=== PATIENT | female | born 1970 | race Caucasian/White ===

== ENCOUNTER → 2016-12-04 | Outpatient (CLI) | payer OTHER ==
[~2016-12-04] MED LIST: ADVIL200 MG PO; ALEVE220 MG PO; CLONIDINE0.1 MG PO; GABAPENTIN300 M1 PO; KLONOPIN0.5 MG PO; LEXAPRO20 MG PO; NEURONTIN300 MG/CAP PO; ORPHENADRINE C100 MG PO; TRAMADOL HYDRO100 MG PO; ULTRAM50 M1 PO; ULTRAM50 MG PO; VYTORIN; WELLBUTRIN SR150 M2 PO; XANAX 0.5MG0.5 MG PO; XANAX0.5 MG PO; ZOLOFT 100MG100 MG PO
== END ==
LOC: MAMMO 07:39
DX: R92.8 Other abnormal and inconclusive findings on diagnostic imaging of breast (principal)

== ENCOUNTER → 2017-05-16 | Outpatient (CLI) | payer OTHER ==
[2016-06-17 19:54] VITALS: BP 136/72
== END ==
LOC: RAD 15:07
DX: R05 Cough (principal)

== ENCOUNTER → 2017-08-29 | Outpatient (CLI) | payer OTHER ==
[2016-06-17 19:54] VITALS: BP 136/72
[2017-08-30 01:29] LABS: T3 TOTAL 90 ng/dL (87-178)
== END ==
LOC: LAB 15:56
PROVIDERS: Nurse Practitioner Family
DX: F45.8 Other somatoform disorders (principal)

== ENCOUNTER → 2018-01-15 | Outpatient (CLI) | payer OTHER ==
[2016-06-17 19:54] VITALS: BP 136/72
== END ==
LOC: MAMMO 11:30
DX: Z12.31 Encounter for screening mammogram for malignant neoplasm of breast (principal); R92.8 Other abnormal and inconclusive findings on diagnostic imaging of breast; N95.1 Menopausal and female climacteric states; F39 Unspecified mood [affective] disorder

== ENCOUNTER → 2018-01-21 | Outpatient (CLI) | payer OTHER ==
[2016-06-17 19:54] VITALS: BP 136/72
== END ==
LOC: RAD 07:11 → MAMMO 07:16 → RAD 07:16 → MAMMO 07:17
DX: R92.2 Inconclusive mammogram (principal); Z88.1 Allergy status to other antibiotic agents; Z88.5 Allergy status to narcotic agent

== ENCOUNTER → 2018-04-15 | Outpatient (CLI) | payer OTHER ==
[2016-06-17 19:54] VITALS: BP 136/72
== END ==
LOC: RAD 16:45
DX: M26.622 Arthralgia of left temporomandibular joint (principal); S00.83XA Contusion of other part of head, initial encounter

== ENCOUNTER → 2018-06-18 | Day surgery (SDC) | payer OTHER ==
[2016-06-17 19:54] VITALS: BP 136/72
== END ==
LOC: MSO 11:57
DX: R13.10 Dysphagia, unspecified (principal); K21.9 Gastro-esophageal reflux disease without esophagitis; F17.210 Nicotine dependence, cigarettes, uncomplicated; Z79.899 Other long term (current) drug therapy
CPT/HCPCS: 00731; A4649; C1726; J2704; J7120

== ENCOUNTER → 2018-08-29 | Outpatient (CLI) | payer OTHER ==
[2016-06-17 19:54] VITALS: BP 136/72
== END ==
LOC: MAMMO 11:33
DX: R92.8 Other abnormal and inconclusive findings on diagnostic imaging of breast (principal)

== ENCOUNTER → 2018-12-12 | Outpatient (CLI) | payer OTHER ==
[2016-06-17 19:54] VITALS: BP 136/72
== END ==
LOC: LAB 10:34
DX: N39.0 Urinary tract infection, site not specified (principal); B99.9 Unspecified infectious disease; R30.0 Dysuria; M54.9 Dorsalgia, unspecified

== ENCOUNTER → 2019-02-25 | Outpatient (CLI) | payer OTHER ==
[2016-06-17 19:54] VITALS: BP 136/72
== END ==
LOC: MAMMO 10:42
DX: Z12.31 Encounter for screening mammogram for malignant neoplasm of breast (principal)

== ENCOUNTER → 2019-03-20 | Outpatient (CLI) | payer OTHER ==
[2016-06-17 19:54] VITALS: BP 136/72
== END ==
LOC: RAD 10:45
DX: M79.89 Other specified soft tissue disorders (principal)

== ENCOUNTER → 2019-03-20 | Outpatient (REF) | payer OTHER ==
[2016-06-17 19:54] VITALS: BP 136/72
== END ==
LOC: RAD 10:33 → LAB 10:33 → EDSTATUS 10:39
DX: M79.642 Pain in left hand (principal); M79.89 Other specified soft tissue disorders

== ENCOUNTER → 2019-05-12 | Outpatient (CLI) | payer OTHER ==
[2016-06-17 19:54] VITALS: BP 136/72
== END ==
LOC: RAD 13:35
DX: R14.0 Abdominal distension (gaseous) (principal); R10.9 Unspecified abdominal pain

== ENCOUNTER → 2020-02-17 | Outpatient (CLI) | payer OTHER ==
[2016-06-17 19:54] VITALS: BP 136/72
== END ==
LOC: LAB 15:15
DX: R10.9 Unspecified abdominal pain (principal); R05 Cough

== ENCOUNTER → 2020-03-30 | Outpatient (CLI) | payer OTHER ==
[2016-06-17 19:54] VITALS: BP 136/72
[2020-03-30 14:40] LABS: BASO # 0.1 (0.02-0.10); EOS # 0.2 (0.04-0.40); EOS % 2.2 % (1.0-5.0); HEMATOCRIT 48.2 % (37.0-47.0); HEMOGLOBIN 15.7 g/dL (12.5-16.0); LYMPH# 3.8 (1.50-4.00); MEAN CELL VOLUME 93 fl (78-100); MEAN CORPUSCULAR HEMOGLOBIN 30 pg (27-31); MEAN CORPUSCULAR HGB CONC 33 g/dL (33-37); MEAN PLATELET VOLUME 9.3 fl (7.4-10.4); MONO # 0.8 (0.20-0.80); NEU # 4.4 (1.40-6.50); PLATELET COUNT 339 K/mm3 (130-400); RED BLOOD COUNT 5.18 M/mm3 (4.10-5.30); RED CELL DISTRIBUTION WIDTH 13.4 % (11.5-14.5); WHITE BLOOD COUNT 9.3 K/mm3 (4.8-10.8)
[2020-03-30 14:53] LABS: ALBUMIN 4.4 g/dL (3.5-5.0); POTASSIUM 4.5 mmol/L (3.5-5.1)
[2020-03-30 14:54] LABS: CALCIUM 9.2 mg/dL (8.3-10.5)
[2020-03-30 14:56] LABS: TOTAL PROTEIN 7.6 g/dL (6.4-8.3)
[2020-03-30 14:58] LABS: TOTAL BILIRUBIN 0.2 mg/dL (0.2-1.2)
== END ==
LOC: LAB 14:22
PROVIDERS: Family Medicine
DX: Z00.00 Encounter for general adult medical examination without abnormal findings (principal); Z12.11 Encounter for screening for malignant neoplasm of colon; Z12.39 Encounter for other screening for malignant neoplasm of breast; J30.89 Other allergic rhinitis; H66.91 Otitis media, unspecified, right ear; K90.9 Intestinal malabsorption, unspecified; E55.9 Vitamin D deficiency, unspecified; E78.2 Mixed hyperlipidemia; R10.13 Epigastric pain; R10.11 Right upper quadrant pain

== ENCOUNTER → 2020-03-31 | Outpatient (CLI) | payer OTHER ==
[2016-06-17 19:54] VITALS: BP 136/72
== END ==
LOC: MAMMO 08:24
DX: Z12.31 Encounter for screening mammogram for malignant neoplasm of breast (principal)

== ENCOUNTER → 2020-04-15 | Outpatient (CLI) | payer OTHER ==
[2016-06-17 19:54] VITALS: BP 136/72
== END ==
LOC: LAB 08:39
DX: Z01.818 Encounter for other preprocedural examination (principal); Z20.828 Contact with and (suspected) exposure to other viral communicable diseases

== ENCOUNTER → 2020-04-19 | Day surgery (SDC) | payer OTHER ==
[2016-06-17 19:54] VITALS: BP 136/72
== END ==
LOC: MSO 07:58
DX: Z12.11 Encounter for screening for malignant neoplasm of colon (principal); D12.0 Benign neoplasm of cecum; K57.90 Diverticulosis of intestine, part unspecified, without perforation or abscess without bleeding; K63.89 Other specified diseases of intestine; K64.4 Residual hemorrhoidal skin tags; K21.9 Gastro-esophageal reflux disease without esophagitis; F41.9 Anxiety disorder, unspecified; F32.9 Major depressive disorder, single episode, unspecified; F17.210 Nicotine dependence, cigarettes, uncomplicated; Z80.3 Family history of malignant neoplasm of breast; Z83.3 Family history of diabetes mellitus; Z88.1 Allergy status to other antibiotic agents; Z88.5 Allergy status to narcotic agent; Z79.899 Other long term (current) drug therapy
CPT/HCPCS: 00811; J2704; J7120

== ENCOUNTER → 2020-05-25 | Outpatient (CLI) | payer OTHER ==
[2016-06-17 19:54] VITALS: BP 136/72
== END ==
LOC: RAD 11:43
DX: R10.9 Unspecified abdominal pain (principal); R11.0 Nausea

== ENCOUNTER → 2020-05-26 | Outpatient (CLI) | payer OTHER ==
[2016-06-17 19:54] VITALS: BP 136/72
[~2020-05-26] MED LIST changes: +24 HOUR NASAL16.9 ML NS; +ANASPAZ0.125 M1 PO; +CETIRIZINE HCL10 MG PO; +FAMOTIDINE20 MG PO; +GABAPENTIN TAB600 MG PO; +NORCO 325 MG-51 TA1 PO; +OMEPRAZOLE40 MG PO; +PHENERGAN 25 TA25 MG PO; +PROAIR HFA0.09 MG/AC IH; +WELLBUTRIN XL300 M1 PO; +ZOFRAN ODT4 MG PO
== END ==
LOC: RAD 07:18
DX: R10.9 Unspecified abdominal pain (principal); R11.0 Nausea; Z90.49 Acquired absence of other specified parts of digestive tract

== ENCOUNTER → 2020-06-30 | Outpatient (CLI) | payer OTHER ==
[2020-05-28 12:25] VITALS: BP 135/86
== END ==
LOC: LAB 14:12
DX: N39.0 Urinary tract infection, site not specified (principal)

== ENCOUNTER → 2020-07-16 | Outpatient (CLI) | payer OTHER ==
[2020-05-28 12:25] VITALS: BP 135/86
== END ==
LOC: RAD 15:46
DX: S20.211A Contusion of right front wall of thorax, initial encounter (principal); W19.XXXA Unspecified fall, initial encounter

== ENCOUNTER → 2020-08-16 | Outpatient (CLI) | payer OTHER ==
[2020-05-28 12:25] VITALS: BP 135/86
== END ==
LOC: LAB 13:50
DX: J02.9 Acute pharyngitis, unspecified (principal); M79.10 Myalgia, unspecified site; J34.89 Other specified disorders of nose and nasal sinuses; R09.89 Other specified symptoms and signs involving the circulatory and respiratory systems; Z20.828 Contact with and (suspected) exposure to other viral communicable diseases

== ENCOUNTER → 2020-08-25 | Outpatient (CLI) | payer OTHER ==
[2020-05-28 12:25] VITALS: BP 135/86
== END ==
LOC: RAD 09:04
DX: J18.9 Pneumonia, unspecified organism (principal); J30.89 Other allergic rhinitis; Z72.0 Tobacco use

== ENCOUNTER 2020-08-31 10:44 | Inpatient (IN) | payer OTHER ==
[~2020-08-31] VITALS: Ht 154.9 cm; Wt 70.6 kg
[~2020-08-31 10:44] MED LIST changes: -WELLBUTRIN SR150 M2 PO
[2020-08-31] MEDS ORDERED: MUCINEX DM 30 M1 TE1 PO (11:02)
[2020-08-31] MEDS ORDERED: PREDNISONE20 M1 PO (11:03)
[2020-08-31] MEDS ORDERED: LEVOFLOXACIN750 MG PO (11:07)
[2020-08-31] MEDS ORDERED: ALBUTEROL SULFAT3 M3 (11:08)
[2020-08-31 11:37] LABS: EOS # 0.1 (0.04-0.40); EOS % 0.3 % (1.0-5.0); HEMATOCRIT 43.7 % (37.0-47.0); HEMOGLOBIN 13.8 g/dL (12.5-16.0); MEAN CELL VOLUME 96 fl (78-100); MEAN CORPUSCULAR HEMOGLOBIN 30 pg (27-31); MEAN CORPUSCULAR HGB CONC 32 g/dL (33-37); MEAN PLATELET VOLUME 8.7 fl (7.4-10.4); PLATELET COUNT 438 K/mm3 (130-400); RED BLOOD COUNT 4.54 M/mm3 (4.10-5.30); RED CELL DISTRIBUTION WIDTH 14.7 % (11.5-14.5); WHITE BLOOD COUNT 19.8 K/mm3 (4.8-10.8)
[2020-08-31 11:51] LABS: LYMPH# 5.8 (1.50-4.00); MONO # 1.6 (0.20-0.80); NEU # 12.2 (1.40-6.50)
[2020-08-31 11:52] LABS: POTASSIUM 4.3 mmol/L (3.5-5.1); SODIUM 139 mmol/L (136-145)
[2020-08-31 11:53] LABS: CALCIUM 9.3 mg/dL (8.3-10.5)
[2020-08-31 11:54] LABS: GLUCOSE 83 mg/dL (65-105); TOTAL PROTEIN 6.7 g/dL (6.4-8.3)
[2020-08-31 11:55] LABS: CARBON DIOXIDE 28 mmol/L (22-29)
[2020-08-31 12:00] LABS: AST-SGOT 19 U/L (5-34)
[2020-08-31 12:01] LABS: ALT/SGPT 46 U/L (0-55)
[2020-08-31 12:17] LABS: TOTAL BILIRUBIN 0.3 mg/dL (0.2-1.2)
[2020-08-31 12:38] LABS: TROPONIN-I < 0.03 ng/mL (<0.030)
[2020-08-31 12:41] LABS: ERYTHROCYTE SEDIMENTATION RATE 13 mm/hr (0-20)
[2020-08-31 12:57] LABS: PH-URINE 7.5 (5.0 - 8.0); URINE APPEARANCE CLEAR; URINE BILIRUBIN NEGATIVE (NEGATIVE); URINE BLOOD NEGATIVE (NEGATIVE); URINE COLOR YELLOW; URINE GLUCOSE NEGATIVE (NEGATIVE); URINE KETONE NEGATIVE (NEGATIVE); URINE LEUKOCYTE ESTERASE NEGATIVE (NEGATIVE); URINE NITRATE NEGATIVE (NEGATIVE); URINE PROTEIN(semi-quant) NEGATIVE (NEGATIVE); URINE UROBILINOGEN NORMAL (NORMAL); URINE WBC 0-1 /hpf (0-3)
[2020-08-31 13:08] LABS: D-DIMER 0.29 mg/L FEU (0.15-0.50)
[2020-08-31 15:25] VITALS: BP 136/82
[2020-08-31 18:24] VITALS: BP 130/71
[2020-08-31 21:25] VITALS: BP 115/65
[2020-09-01 02:01] VITALS: BP 131/78
[2020-09-01 05:56] LABS: HEMATOCRIT 43.6 % (37.0-47.0); HEMOGLOBIN 13.7 g/dL (12.5-16.0); MEAN CELL VOLUME 98 fl (78-100); MEAN CORPUSCULAR HEMOGLOBIN 31 pg (27-31); MEAN CORPUSCULAR HGB CONC 31 g/dL (33-37); MEAN PLATELET VOLUME 8.9 fl (7.4-10.4); PLATELET COUNT 403 K/mm3 (130-400); RED BLOOD COUNT 4.47 M/mm3 (4.10-5.30); RED CELL DISTRIBUTION WIDTH 14.3 % (11.5-14.5); WHITE BLOOD COUNT 15.2 K/mm3 (4.8-10.8)
[2020-09-01 06:02] VITALS: BP 146/83
[2020-09-01 06:16] LABS: POTASSIUM 4.1 mmol/L (3.5-5.1)
[2020-09-01 06:17] LABS: CALCIUM 8.4 mg/dL (8.3-10.5)
[2020-09-01 06:38] LABS: LYMPHOCYTE 2 % (20-51); MONOCYTE 1 % (3-10); NEUTROPHILS 97 % (42-75)
[2020-09-01 09:50] VITALS: BP 136/84
[2020-09-01 13:36] VITALS: BP 153/88
[2020-09-01] MEDS ORDERED: IPRATROPIUM BROM3 M1 IH (14:55)
[2020-09-01] MEDS ORDERED: DOCUSATE SOD100 MG PO (14:57)
[2020-09-01] MEDS ORDERED: VIBRAMYCIN HYC100 MG PO (15:00)
[2020-09-01] MEDS ORDERED: PREDNISONE20 M1 PO (15:00)
[2020-09-01] MEDS ORDERED: PERCOCET 325 MG1 TA2 PO (15:09)
== END 2020-09-01 15:45 | disposition home or self-care (01) | DRG 190 ==
LOC: ED 10:44 → MED/SURG 14:31
PROVIDERS: ADMIT Nurse Practitioner Family
DX: J43.9 Emphysema, unspecified (principal); J18.9 Pneumonia, unspecified organism; B37.0 Candidal stomatitis; M19.90 Unspecified osteoarthritis, unspecified site; R91.1 Solitary pulmonary nodule; S22.31XD Fracture of one rib, right side, subsequent encounter for fracture with routine healing; M54.5 Low back pain; F41.9 Anxiety disorder, unspecified; Z20.828 Contact with and (suspected) exposure to other viral communicable diseases; F17.210 Nicotine dependence, cigarettes, uncomplicated; W19.XXXD Unspecified fall, subsequent encounter; Z79.52 Long term (current) use of systemic steroids; Z96.651 Presence of right artificial knee joint; Z90.710 Acquired absence of both cervix and uterus; Z88.6 Allergy status to analgesic agent
CPT/HCPCS: J0295; J1650; J1885; J2060; J2930; J7030; Q9967

== ENCOUNTER → 2020-12-30 | Outpatient (CLI) | payer OTHER ==
[~2020-12-30] MED LIST changes: +ALBUTEROL SULFAT3 M3; +DOCUSATE SOD100 MG PO; +IPRATROPIUM BROM3 M1 IH; +LEVOFLOXACIN750 MG PO; +MUCINEX DM 30 M1 TE1 PO; +PERCOCET 325 MG1 TA2 PO; +PREDNISONE20 M1 PO; +VIBRAMYCIN HYC100 MG PO
== END ==
LOC: RAD 14:51
DX: S22.41XD Multiple fractures of ribs, right side, subsequent encounter for fracture with routine healing (principal)

== ENCOUNTER → 2021-02-10 | Outpatient (CLI) | payer OTHER ==
[~2021-02-10] MED LIST changes: +KLONOPIN 0.5MG0.5 MG PO; +LIDOCAINE1 EACH TP; +VOLTAREN 75 DR75 MG PO
[2021-02-10 16:30] LABS: HEMATOCRIT 49.8 % (37.0-47.0); HEMOGLOBIN 16.3 g/dL (12.5-16.0); MEAN CELL VOLUME 92 fl (78-100); MEAN CORPUSCULAR HEMOGLOBIN 30 pg (27-31); MEAN CORPUSCULAR HGB CONC 33 g/dL (33-37); MEAN PLATELET VOLUME 9.1 fl (7.4-10.4); PLATELET COUNT 327 K/mm3 (130-400); RED BLOOD COUNT 5.41 M/mm3 (4.10-5.30); RED CELL DISTRIBUTION WIDTH 13.5 % (11.5-14.5); WHITE BLOOD COUNT 15.9 K/mm3 (4.8-10.8)
[2021-02-10 16:42] LABS: ALBUMIN 4.2 g/dL (3.5-5.0)
[2021-02-10 16:43] LABS: CALCIUM 9.3 mg/dL (8.3-10.5)
[2021-02-10 16:45] LABS: TOTAL PROTEIN 7.2 g/dL (6.4-8.3)
[2021-02-10 16:46] LABS: TOTAL BILIRUBIN 0.2 mg/dL (0.2-1.2)
[2021-02-10 18:02] LABS: LYMPHOCYTE 13 % (20-51); NEUTROPHILS 82 % (42-75)
[2021-02-10 18:03] LABS: MONOCYTE 4 % (3-10)
== END ==
LOC: RAD 15:54
PROVIDERS: Physician Assistant
DX: R22.1 Localized swelling, mass and lump, neck (principal); R07.9 Chest pain, unspecified

== ENCOUNTER 2021-02-22 09:36 | Emergency (ER) | payer OTHER ==
[~2021-02-22 09:36] MED LIST changes: -KLONOPIN 0.5MG0.5 MG PO; -LIDOCAINE1 EACH TP; -VOLTAREN 75 DR75 MG PO
[2021-02-22 09:45] VITALS: BP 160/96
[2021-02-22] MEDS ORDERED: VOLTAREN 75 DR75 MG PO (09:50)
[2021-02-22] MEDS ORDERED: KLONOPIN 0.5MG0.5 MG PO (09:50)
[2021-02-22] MEDS ORDERED: LIDOCAINE1 EACH TP (09:50)
[2021-02-22 10:05] LABS: EOS # 0.1 (0.04-0.40); EOS % 0.7 % (1.0-5.0); HEMATOCRIT 48.9 % (37.0-47.0); HEMOGLOBIN 15.6 g/dL (12.5-16.0); LYMPH# 3.5 (1.50-4.00); MEAN CELL VOLUME 95 fl (78-100); MEAN CORPUSCULAR HEMOGLOBIN 30 pg (27-31); MEAN CORPUSCULAR HGB CONC 32 g/dL (33-37); MEAN PLATELET VOLUME 8.7 fl (7.4-10.4); MONO # 0.8 (0.20-0.80); NEU # 6.4 (1.40-6.50); PLATELET COUNT 406 K/mm3 (130-400); RED BLOOD COUNT 5.15 M/mm3 (4.10-5.30); RED CELL DISTRIBUTION WIDTH 14.7 % (11.5-14.5); WHITE BLOOD COUNT 10.8 K/mm3 (4.8-10.8)
[2021-02-22 10:27] LABS: POTASSIUM 4.2 mmol/L (3.5-5.1)
[2021-02-22 10:29] LABS: CALCIUM 8.8 mg/dL (8.3-10.5)
[2021-02-22 10:30] LABS: TOTAL PROTEIN 6.8 g/dL (6.4-8.3)
[2021-02-22 10:32] LABS: TOTAL BILIRUBIN 0.3 mg/dL (0.2-1.2)
== END 2021-02-22 12:32 | disposition home or self-care (01) ==
LOC: ED 09:36
PROVIDERS: Nurse Practitioner
DX: J06.9 Acute upper respiratory infection, unspecified (principal); G89.29 Other chronic pain; R07.89 Other chest pain; F41.9 Anxiety disorder, unspecified; E78.5 Hyperlipidemia, unspecified; F17.210 Nicotine dependence, cigarettes, uncomplicated; Z79.52 Long term (current) use of systemic steroids; Z79.891 Long term (current) use of opiate analgesic; Z88.6 Allergy status to analgesic agent; Z88.1 Allergy status to other antibiotic agents
CPT/HCPCS: Q9967

== ENCOUNTER → 2021-02-28 | Outpatient (CLI) | payer OTHER ==
[2021-02-22 09:45] VITALS: BP 160/96
[~2021-02-28] MED LIST changes: +KLONOPIN 0.5MG0.5 MG PO; +LIDOCAINE1 EACH TP; +VOLTAREN 75 DR75 MG PO
== END ==
LOC: RAD 13:45
DX: E04.1 Nontoxic single thyroid nodule (principal)

== ENCOUNTER → 2021-04-27 | Outpatient (CLI) | payer OTHER ==
[2021-04-27 12:21] LABS: BASO # 0.08 (0.02-0.10); EOS # 0.16 (0.04-0.40); EOS % 1.1 % (1.0-5.0); HEMATOCRIT 45.9 % (37.0-47.0); HEMOGLOBIN 15.4 g/dL (12.5-16.0); LYMPH# 3.77 (1.50-4.00); MEAN CELL VOLUME 93 fl (78-100); MEAN CORPUSCULAR HEMOGLOBIN 31 pg (27-31); MEAN CORPUSCULAR HGB CONC 34 g/dL (33-37); MEAN PLATELET VOLUME 8.7 fl (7.4-10.4); MONO # 0.69 (0.20-0.80); NEU # 9.41 (1.40-6.50); PLATELET COUNT 370 K/mm3 (130-400); RED BLOOD COUNT 4.96 M/mm3 (4.10-5.30); RED CELL DISTRIBUTION WIDTH 13.4 % (11.5-14.5); WHITE BLOOD COUNT 14.1 K/mm3 (4.8-10.8)
[2021-04-27 12:33] LABS: POTASSIUM 3.4 mmol/L (3.5-5.1)
[2021-04-27 12:34] LABS: ALBUMIN 3.9 g/dL (3.5-5.0)
[2021-04-27 12:36] LABS: TOTAL PROTEIN 6.7 g/dL (6.4-8.3)
[2021-04-27 12:38] LABS: TOTAL BILIRUBIN 0.4 mg/dL (0.2-1.2)
[2021-04-27 13:26] LABS: ERYTHROCYTE SEDIMENTATION RATE 1 mm/hr (0-30)
[2021-04-28 10:48] LABS: ANA SCREEN with REFLEX Negative (Negative)
== END ==
LOC: LAB 12:03
PROVIDERS: Physician Assistant
DX: E78.5 Hyperlipidemia, unspecified (principal); M25.50 Pain in unspecified joint

== ENCOUNTER → 2021-07-14 | Outpatient (CLI) | payer OTHER | LOC: LAB 15:09 | DX: R19.5 Other fecal abnormalities (principal) ==

== ENCOUNTER → 2021-07-20 | Outpatient (CLI) | payer OTHER ==
[2021-07-20 14:29] LABS: URINE APPEARANCE CLEAR; URINE BILIRUBIN NEGATIVE (NEGATIVE); URINE BLOOD NEGATIVE (NEGATIVE); URINE COLOR YELLOW; URINE GLUCOSE NEGATIVE (NEGATIVE); URINE KETONE NEGATIVE (NEGATIVE); URINE LEUKOCYTE ESTERASE NEGATIVE (NEGATIVE); URINE MUCUS PRESENT (NOT PRESENT); URINE NITRATE NEGATIVE (NEGATIVE); URINE PROTEIN(semi-quant) TRACE mg/dL (NEGATIVE); URINE UROBILINOGEN NORMAL (NORMAL)
[2021-07-20 14:33] LABS: BASO # 0.06 (0.02-0.10); EOS # 0.07 (0.04-0.40); EOS % 0.8 % (1.0-5.0); HEMATOCRIT 48.4 % (37.0-47.0); HEMOGLOBIN 15.7 g/dL (12.5-16.0); LYMPH# 3.19 (1.50-4.00); MEAN CELL VOLUME 93 fl (78-100); MEAN CORPUSCULAR HEMOGLOBIN 30 pg (27-31); MEAN CORPUSCULAR HGB CONC 32 g/dL (33-37); MEAN PLATELET VOLUME 9.7 fl (7.4-10.4); MONO # 0.65 (0.20-0.80); NEU # 4.55 (1.40-6.50); PLATELET COUNT 344 K/mm3 (130-400); RED BLOOD COUNT 5.22 M/mm3 (4.10-5.30); RED CELL DISTRIBUTION WIDTH 12.2 % (11.5-14.5); WHITE BLOOD COUNT 8.5 K/mm3 (4.8-10.8)
[2021-07-20 14:36] LABS: ALBUMIN 4.1 g/dL (3.5-5.0)
[2021-07-20 14:37] LABS: POTASSIUM 3.4 mmol/L (3.5-5.1)
[2021-07-20 14:38] LABS: CALCIUM 9.8 mg/dL (8.3-10.5)
[2021-07-20 14:39] LABS: TOTAL PROTEIN 7.3 g/dL (6.4-8.3)
[2021-07-20 14:41] LABS: TOTAL BILIRUBIN 0.4 mg/dL (0.2-1.2)
[2021-07-21 12:57] LABS: AFFIRM VAGINITIS PANEL RESULTS AMS
== END ==
LOC: LAB 14:04
PROVIDERS: Physician Assistant
DX: L29.3 Anogenital pruritus, unspecified (principal); R50.9 Fever, unspecified; R11.2 Nausea with vomiting, unspecified; R10.30 Lower abdominal pain, unspecified

== ENCOUNTER → 2021-08-25 | Outpatient (CLI) | payer OTHER | LOC: RAD 15:06 | DX: M53.3 Sacrococcygeal disorders, not elsewhere classified (principal); Z90.49 Acquired absence of other specified parts of digestive tract ==

== ENCOUNTER → 2021-09-08 | Outpatient (CLI) | payer OTHER | LOC: LAB 18:17 | DX: Z20.822 Contact with and (suspected) exposure to COVID-19 (principal) ==

== ENCOUNTER → 2021-09-20 | Outpatient (CLI) | payer OTHER | LOC: RAD 16:01 | DX: S20.212A Contusion of left front wall of thorax, initial encounter (principal); M25.511 Pain in right shoulder ==

== ENCOUNTER → 2021-10-10 | Outpatient (CLI) | payer OTHER | LOC: RAD 11:46 | DX: R07.81 Pleurodynia (principal); W19.XXXA Unspecified fall, initial encounter ==

== ENCOUNTER 2021-10-27 13:04 | Emergency (ER) | payer OTHER ==
[2021-10-27] MEDS ORDERED: TRAMADOL 50 MG TAB PO (13:23)
[2021-10-27] MEDS ORDERED: PREGABALIN300 MG PO (13:23)
[2021-10-27] MEDS ORDERED: FEXOFENADINE H180 M1 PO (13:23)
[2021-10-27] MEDS ORDERED: VYVANSE60 MG PO (13:24)
[2021-10-27 13:35] LABS: BASO # 0.06 K/mm3 (0.02-0.10); EOS # 0.09 K/mm3 (0.04-0.40); EOS % 0.9 % (1.0-5.0); HEMATOCRIT 51.7 % (37.0-47.0); HEMOGLOBIN 16.9 g/dL (12.5-16.0); LYMPH# 3.82 K/mm3 (1.50-4.00); MEAN CELL VOLUME 90 fl (78-100); MEAN CORPUSCULAR HEMOGLOBIN 29 pg (27-31); MEAN CORPUSCULAR HGB CONC 33 g/dL (33-37); MEAN PLATELET VOLUME 9.8 fl (7.4-10.4); NEU # 5.34 K/mm3 (1.40-6.50); PLATELET COUNT 330 K/mm3 (130-400); RED BLOOD COUNT 5.74 M/mm3 (4.10-5.30); RED CELL DISTRIBUTION WIDTH 12.8 % (11.5-14.5); WHITE BLOOD COUNT 9.9 K/mm3 (4.8-10.8)
[2021-10-27 13:45] LABS: ALBUMIN 4.1 g/dL (3.5-5.0); POTASSIUM 4.2 mmol/L (3.5-5.1); SODIUM 140 mmol/L (136-145)
[2021-10-27 13:46] LABS: CALCIUM 9.6 mg/dL (8.3-10.5)
[2021-10-27 13:47] LABS: GLUCOSE 91 mg/dL (65-105); TOTAL PROTEIN 7.4 g/dL (6.4-8.3)
[2021-10-27 13:49] LABS: CARBON DIOXIDE 21 mmol/L (22-29); TOTAL BILIRUBIN 0.3 mg/dL (0.2-1.2)
[2021-10-27 13:53] LABS: AST-SGOT 13 U/L (5-34)
[2021-10-27 13:54] LABS: ALT/SGPT 9 U/L (0-55)
[2021-10-27 14:00] LABS: TROPONIN-I < 0.03 ng/mL (<0.030)
[2021-10-27] MEDS ORDERED: PREDNISONE20 MG PO (14:44)
[2021-10-27 15:17] VITALS: BP 145/87
== END 2021-10-27 15:14 | disposition home or self-care (01) ==
LOC: ED 13:04
PROVIDERS: Family Medicine
DX: U07.1 COVID-19 (principal); F41.9 Anxiety disorder, unspecified; J44.9 Chronic obstructive pulmonary disease, unspecified; G89.29 Other chronic pain; M54.9 Dorsalgia, unspecified; Z88.1 Allergy status to other antibiotic agents; Z79.899 Other long term (current) drug therapy
CPT/HCPCS: J2930; J7030

== ENCOUNTER → 2022-01-23 | Outpatient (CLI) | payer OTHER ==
[~2022-01-23] MED LIST changes: +FEXOFENADINE H180 M1 PO; +PREDNISONE20 MG PO; +PREGABALIN300 MG PO; +TRAMADOL 50 MG TAB PO; +VYVANSE60 MG PO
== END ==
LOC: RAD 15:53
DX: M25.50 Pain in unspecified joint (principal); Z98.1 Arthrodesis status

== ENCOUNTER → 2022-09-06 | Outpatient (CLI) | payer OTHER ==
[2022-09-06 15:32] LABS: BASO # 0.06 K/mm3 (0.02-0.10); EOS # 0.13 K/mm3 (0.04-0.40); EOS % 0.9 % (1.0-5.0); HEMATOCRIT 45.1 % (37.0-47.0); HEMOGLOBIN 14.5 g/dL (12.5-16.0); LYMPH# 4.09 K/mm3 (1.50-4.00); MEAN CELL VOLUME 94 fl (78-100); MEAN CORPUSCULAR HEMOGLOBIN 30 pg (27-31); MEAN CORPUSCULAR HGB CONC 32 g/dL (33-37); MEAN PLATELET VOLUME 9.3 fl (7.4-10.4); MONO # 0.67 K/mm3 (0.20-0.80); NEU # 8.85 K/mm3 (1.40-6.50); PLATELET COUNT 316 K/mm3 (130-400); RED BLOOD COUNT 4.81 M/mm3 (4.10-5.30); WHITE BLOOD COUNT 13.8 K/mm3 (4.8-10.8)
[2022-09-06 15:43] LABS: ALBUMIN 4.3 g/dL (3.5-5.0); POTASSIUM 4.2 mmol/L (3.5-5.1)
[2022-09-06 15:44] LABS: CALCIUM 9.4 mg/dL (8.3-10.5)
[2022-09-06 15:45] LABS: TOTAL PROTEIN 7.1 g/dL (6.4-8.3)
[2022-09-06 15:47] LABS: TOTAL BILIRUBIN 0.4 mg/dL (0.2-1.2)
[2022-09-06 23:34] LABS: T3 TOTAL 86 ng/dL (35-193)
== END ==
LOC: LAB 15:09
PROVIDERS: Physician Assistant
DX: M81.0 Age-related osteoporosis without current pathological fracture (principal); E04.1 Nontoxic single thyroid nodule; J44.9 Chronic obstructive pulmonary disease, unspecified; E78.2 Mixed hyperlipidemia; K90.9 Intestinal malabsorption, unspecified; M54.9 Dorsalgia, unspecified; R53.83 Other fatigue

== ENCOUNTER → 2023-01-24 | Outpatient (CLI) | payer BC | LOC: RAD 10:09 | DX: E04.1 Nontoxic single thyroid nodule (principal) ==

== ENCOUNTER → 2023-08-22 | Outpatient (CLI) | payer BC ==
[2023-08-22 11:42] LABS: BASO # 0.04 K/mm3 (0.02-0.10); HEMATOCRIT 51.5 % (37.0-47.0); HEMOGLOBIN 16.5 g/dL (12.5-16.0); LYMPH# 4.23 K/mm3 (1.50-4.00); MEAN CELL VOLUME 94 fl (78-100); MEAN CORPUSCULAR HEMOGLOBIN 30 pg (27-31); MEAN CORPUSCULAR HGB CONC 32 g/dL (33-37); MEAN PLATELET VOLUME 10.2 fl (7.4-10.4); MONO # 0.74 K/mm3 (0.20-0.80); NEU # 5.06 K/mm3 (1.40-6.50); PLATELET COUNT 332 K/mm3 (130-400); RED BLOOD COUNT 5.49 M/mm3 (4.10-5.30); RED CELL DISTRIBUTION WIDTH 12.8 % (11.5-14.5); WHITE BLOOD COUNT 10.2 K/mm3 (4.8-10.8)
[2023-08-22 11:49] LABS: POTASSIUM 4.4 mmol/L (3.5-5.1)
[2023-08-22 11:50] LABS: ALBUMIN 4.3 g/dL (3.5-5.0)
[2023-08-22 11:51] LABS: CALCIUM 9.5 mg/dL (8.3-10.5)
[2023-08-22 11:52] LABS: TOTAL PROTEIN 7.4 g/dL (6.4-8.3)
[2023-08-22 11:54] LABS: TOTAL BILIRUBIN 0.3 mg/dL (0.2-1.2)
[2023-08-22 13:04] LABS: ERYTHROCYTE SEDIMENTATION RATE 7 mm/hr (0-30)
[2023-08-23 10:24] LABS: ANA SCREEN with REFLEX Negative (Negative)
== END ==
LOC: RAD 10:57
PROVIDERS: Physician Assistant
DX: Z13.1 Encounter for screening for diabetes mellitus (principal); Z13.29 Encounter for screening for other suspected endocrine disorder; Z12.39 Encounter for other screening for malignant neoplasm of breast; R10.9 Unspecified abdominal pain; K90.9 Intestinal malabsorption, unspecified; M54.9 Dorsalgia, unspecified; F41.9 Anxiety disorder, unspecified; J44.9 Chronic obstructive pulmonary disease, unspecified; M19.90 Unspecified osteoarthritis, unspecified site; R53.82 Chronic fatigue, unspecified; E04.1 Nontoxic single thyroid nodule; M25.50 Pain in unspecified joint; R13.10 Dysphagia, unspecified; R51.9 Headache, unspecified; Z72.0 Tobacco use; R44.3 Hallucinations, unspecified

== ENCOUNTER → 2023-11-09 | Outpatient (CLI) | payer BC | LOC: LAB 15:05 | DX: R30.0 Dysuria (principal) ==

== ENCOUNTER → 2024-06-20 | Outpatient (CLI) | payer BC ==
[~2024-06-20] MED LIST changes: +Iohexol 300 - 100 ML VIAL IV ONE
== END ==
LOC: RAD 10:00
DX: K86.2 Cyst of pancreas (principal); N20.0 Calculus of kidney; K83.8 Other specified diseases of biliary tract
CPT/HCPCS: Q9967

== ENCOUNTER → 2024-08-01 | Outpatient (CLI) | payer BC ==
[~2024-08-01] MED LIST changes: -Iohexol 300 - 100 ML VIAL IV ONE
== END ==
LOC: MAMMO 09:00
DX: Z12.31 Encounter for screening mammogram for malignant neoplasm of breast (principal)

== ENCOUNTER → 2024-10-03 | Outpatient (CLI) | payer BC | LOC: RAD 09:23 | DX: M16.12 Unilateral primary osteoarthritis, left hip (principal) ==

== ENCOUNTER → 2024-12-18 | Outpatient (CLI) | payer BC | LOC: RAD 09:32 | DX: Z13.820 Encounter for screening for osteoporosis (principal); M81.0 Age-related osteoporosis without current pathological fracture ==